=== PATIENT | female | born 1950 | race African-American/Black ===

== ENCOUNTER → 2017-02-01 | Outpatient (CLI) | payer BC ==
[~2017-02-01] MED LIST: AMLO-114 PO; AMPH10TA2 PO; CYAN10005 PO; GLUCTAB7 PO; LISI-729 PO; MULT-506 PO; OMEG10007 PO
== END | disposition home or self-care (01) ==
LOC: C.MAMM 13:26
PROVIDERS: ATTEND Nurse Practitioner Adult Health
DX: M85.859 Other specified disorders of bone density and structure, unspecified thigh (principal)

== ENCOUNTER → 2017-02-08 | Outpatient (CLI) | payer BC ==
--- NOTE | 2017-02-09 07:58 | MAMMOGRAPHY REPORT ---
BILATERAL DIGITAL SCREENING MAMMOGRAM WITH CAD: 02/08/2017 CLINICAL HISTORY: Routine screening. TECHNIQUE: Bilateral CC and MLO views were obtained. Current study was also evaluated with a Compute r Aided Detection (CAD) system. COMPARISON: Comparison is made to exams dated: 09/16/2015 mammogram, 09/10/2014 mammogram, 08/19/2011 m ammogram, 08/18/2010 mammogram, 07/22/2009 mammogram - [facility], and 07/15/2008. BREAST COMPOSITION: There are scattered areas of fibroglandular density in both breasts. FINDINGS: The parenchymal pattern is unchanged. No developing mass, architectural distortion or clus ter of suspicious microcalcifications is seen in either breast. IMPRESSION: ACR BI-RADS CATEGORY 2: BENIGN There is no mammographic evidence of malignancy. A 1 year screening mammogram is recommended. The pa tient will receive written notification of the results. Approximately 10% of breast cancers are not detected with mammography. A negative mammographic report should not delay biopsy if a clinically suggestive mass is present. Bonnie Begum M.D. ay/:02/08/2017 14:31:43 Ham Pumper: Alejandro Morales RT(R)(M), [facility] letter sent: Normal 1/2 BI-RADS Code: ACR BI-RADS Category 2: Benign
== END | disposition home or self-care (01) ==
LOC: C.MAMM 13:49
PROVIDERS: ATTEND Obstetrics & Gynecology
DX: Z12.31 Encounter for screening mammogram for malignant neoplasm of breast (principal)

== ENCOUNTER → 2017-07-14 | Outpatient (CLI) | payer OTHER ==
[2017-07-14 13:28] LABS: HEMOGLOBIN A1C 5.9 % (4.5-5.6)
[2017-07-14 14:20] LABS: ALBUMIN 3.6 gm/dl (3.4-5.0); ALT/SGPT 26 U/L (12-78); BLOOD UREA NITROGEN 17 mg/dl (7-18); CALCIUM 9.1 mg/dl (8.5-10.1); CARBON DIOXIDE 26 mmol/L (21-32); CREATININE 0.99 mg/dl (0.60-1.20); GLUCOSE 85 mg/dl (70-99); POTASSIUM 3.7 mmol/L (3.5-5.1); SODIUM 137 mmol/L (136-145)
[2017-07-14 14:32] LABS: ALKALINE PHOSPHATASE 83 U/L (45-117); AST/SGOT 19 U/L (15-37); CHOLESTEROL 191 mg/dl (0-200); LDL CHOLESTEROL CALCULATED 126 mg/dl; TOTAL PROTEIN 8.6 gm/dl (6.4-8.2)
== END | disposition home or self-care (01) ==
LOC: C.LAB 12:07
PROVIDERS: ATTEND Family Medicine
DX: I10 Essential (primary) hypertension (principal); E55.9 Vitamin D deficiency, unspecified; E78.00 Pure hypercholesterolemia, unspecified; R73.03 Prediabetes

== ENCOUNTER → 2017-11-10 | Day surgery (SDC) | payer BC, OTHER ==
[2017-01-25 12:02] VITALS: BMI 38.0
[2017-11-01 14:32] VITALS: Ht 157.5 cm; Wt 97.3 kg
[~2017-11-10] VITALS: Ht 157.5 cm; Wt 97.3 kg
[~2017-11-10] MED LIST changes: +ARGI1CAP2 PO; +B-COTAB18 PO; +CALC500C70 PO; +CHOL2000 PO; +EFLO13.925 TOP; +FLUT50SP45 NAE; +LIDOCAINE HCL 2% 2 ML VIAL (20MG/ML) ONE; -LISI-729 PO; +LSN20 PO; +LYCO10CA PO; +MAGN1CAP2 PO; -MULT-506 PO; +MULT1CAP3 PO; +PROPOFOL IV EMULSION 10 MG/ML 20 ML VIAL ONE; +VITA1TAB4 PO
--- NOTE | 2017-11-10 12:42 | Endo History and Physical ---
History & Physical Date of Service: November 10, 2017. Chief Complaint: SCREENING Referring Physician: DR WALTERS History of Present Illness 67 yo female presents for screening colonoscopy. Past Surgical History Hx Cardiac Surgery: No Hx Internal Defibrillator: No Hx Pacemaker: No Hx Abdominal Surgery: Yes (CAROL, HYSTER) Hx of Implantable Prosthesis: No Hx Post-Op Nausea and Vomiting: No Hx Cancer Surgery: No Hx Thoracic Surgery: No Hx Orthopedic: Yes (RT RENAY) Hx Urinary Tract Surgery: No Family History Polyp Social History Smoking Status: Former Smoker Hx Substance Use: No (HX MARIJUANA USE IN 70S) Hx Alcohol Use: Yes (A COUPLE DRINKS/MONTH) Allergies Coded Allergies: Latex (Unverified Allergy, Severe, FACIAL SWELLING, SEVERE ITCHING, LIPS SWOLLEN,FEVER, 11/10/17) Nickel (Verified Allergy, Unknown, RASH, 11/10/17) Beta Adrenergic Blockers (Verified Adverse Reaction, Severe, SUDDEN DEPRESSION, 11/10/17) Current Medications Reported Home Medications Medications Dose Route/Sig Max Daily Dose Days Date Category Os-Devan 500 Plus D (Calcium/Vitamin D) Tab 1 Tab PO DAILY 11/01/17 Reported Allergy Nasal [place] 24 Ho (Fluticasone Propionate (Nasal)) 50 Mcg/Act Spr 1-2 Sprays JEFFREY HS PRN 11/01/17 Reported Vitamin D3 (Cholecalciferol) 2,000 Unit Cap 1 Cap PO DAILY 30 11/01/17 Reported Vitamin B Complex (B-Complex Vitamins) 1 Tab Tab 1 Tab PO DAILY 11/01/17 Reported Vaniqa (Eflornithine Hcl) 13.9 % Cre 1 Appln TOP BID 30 11/01/17 Reported Magnesium (Magnesium Oxide (Mg Supplement) 400 Mg Cap 1 Cap PO DAILY 11/01/17 Reported Lycopene 10 Mg Cap 1 Cap PO DAILY 11/01/17 Reported L-Arginine (Arginine) 500 Mg Cap 1 Cap PO DAILY 11/01/17 Reported Vitamin E 400 Unit Tab 1 Tab PO DAILY 11/01/17 Reported Womens Multi (Multiple Vitamins W/ Minerals) 1 Cap Cap 1 Cap PO DAILY 11/01/17 Reported Lisinopril 20 Mg Tab 1 Tab PO DAILY 11/01/17 Reported Glucosamine Chondroitin (Ktvztfhvcrn-Mtbvklabaac-Uuy C-) 1 Tab Tab 1 Tab PO QAM 01/25/17 Reported Vitamin B-12 (Cyanocobalamin) 1,000 Mcg Tab 1,000 Mcg PO QAM 01/25/17 Reported Norvasc (Amlodipine Besylate) 10 Mg Tab 10 Mg PO QPM 01/25/17 Reported [place]-3 (Fish Oil) 1 Ea Cap 1 Cap PO QAM 10/18/13 Reported Adderall 10MG (Amphetamine-Dextroamphetamine 10MG) 1 Tab Tab 5 Mg PO QAM 10/18/13 Reported Vital Signs Weight (Kilograms): 97.27 Height (Feet): 5 Height (Inches): 2 Date Time Temp Pulse Resp B/P (MAP) Pulse Ox O2 Delivery O2 Flow Rate FiO2 11/10/17 12:30 36.9 86 18 127/83 (98) 94 Room Air Physical Exam General Appearance: WD/WN, no apparent distress Respiratory/Chest: Auscultation: breath sounds normal Cardiovascular: Heart Auscultation: RRR Abdomen: Bowel Sounds: normal Inspection & Palpation: soft, non-distended, no tenderness, guarding & rebound Assessment and Plan Assessment: 67 yo female presents for screening colonoscopy. Plan: Proceed with colonoscopy.
--- NOTE | 2017-11-10 13:16 | Discharge Instructions ---
Endoscopy Patient Instructions Date / Procedure(s) Performed November 10, 2017. Colonoscopy Allergy Information Coded Allergies: Latex (Unverified Allergy, Severe, FACIAL SWELLING, SEVERE ITCHING, LIPS SWOLLEN,FEVER, 11/10/17) Nickel (Verified Allergy, Unknown, RASH, 11/10/17) Beta Adrenergic Blockers (Verified Adverse Reaction, Severe, SUDDEN DEPRESSION, 11/10/17) Discharge Date / Findings November 10, 2017. Colon polyp Internal hemorrhoids Medication Instructions OK to resume all medications today as prescribed Reported Home Medications Medications Dose Route/Sig Max Daily Dose Days Date Category Os-Devan 500 Plus D (Calcium/Vitamin D) Tab 1 Tab PO DAILY 11/01/17 Reported Allergy Nasal [place] 24 Ho (Fluticasone Propionate (Nasal)) 50 Mcg/Act Spr 1-2 Sprays JEFFERY HS PRN 11/01/17 Reported Vitamin D3 (Cholecalciferol) 2,000 Unit Cap 1 Cap PO DAILY 30 11/01/17 Reported Vitamin B Complex (B-Complex Vitamins) 1 Tab Tab 1 Tab PO DAILY 11/01/17 Reported Vaniqa (Eflornithine Hcl) 13.9 % Cre 1 Appln TOP BID 30 11/01/17 Reported Magnesium (Magnesium Oxide (Mg Supplement) 400 Mg Cap 1 Cap PO DAILY 11/01/17 Reported Lycopene 10 Mg Cap 1 Cap PO DAILY 11/01/17 Reported L-Arginine (Arginine) 500 Mg Cap 1 Cap PO DAILY 11/01/17 Reported Vitamin E 400 Unit Tab 1 Tab PO DAILY 11/01/17 Reported Womens Multi (Multiple Vitamins W/ Minerals) 1 Cap Cap 1 Cap PO DAILY 11/01/17 Reported Lisinopril 20 Mg Tab 1 Tab PO DAILY 11/01/17 Reported Glucosamine Chondroitin (Gbamoqsrqxy-Nacaqxthjbr-Szy C-) 1 Tab Tab 1 Tab PO QAM 01/25/17 Reported Vitamin B-12 (Cyanocobalamin) 1,000 Mcg Tab 1,000 Mcg PO QAM 01/25/17 Reported Norvasc (Amlodipine Besylate) 10 Mg Tab 10 Mg PO QPM 01/25/17 Reported [place]-3 (Fish Oil) 1 Ea Cap 1 Cap PO QAM 10/18/13 Reported Adderall 10MG (Amphetamine-Dextroamphetamine 10MG) 1 Tab Tab 5 Mg PO QAM 10/18/13 Reported Provider Instructions Activity Restrictions - No exercising or heavy lifting for 24 hours. - Do not drink alcohol the day of the procedure. - Do not drive a car or operate machinery until the day after the procedure. - Do not make any important decisions or sign important papers in 24 hours after the procedure. Following Day: - Return to full activity which may include returning to work/school. Diet Start your diet with liquids and light foods (jello, soup, juice, toast). Then eat your usual diet if not nauseated. Treatment For Common After Affects For mild abdominal pain, bloating, or excessive gas: - Rest - Eat lightly - Lie on right side Follow-Up Information Follow-up with DR WALTERS as scheduled Anesthesia Information What You Should Know You have had a procedure that required some medicine to reduce anxiety and discomfort. This treatment is called moderate sedation. After receiving the treatment, you may be sleepy, but you will be able to breathe on your own. The effects of the treatment may last for several hours. Follow these instructions along with Activity/Diet recommendations noted above: * Do NOT do anything where dizziness or clumsiness would be dangerous. * Rest quietly at home today, then you can be up and about tomorrow. * Have a responsible person stay with you the rest of today. * You may have had an I.V. today. If so, you may take the dressing off later today. Recommendations Call your doctor if: * Trouble breathing * Continuous vomiting for more than 24 hours * Temperature above 101 degrees * Severe abdominal pain or bloating * Pain not relieved by pain medicine ordered * There is increased drainage or redness from any incision * A large amount of rectal bleeding greater than 2-3 tablespoons. (If you had a polyp/s removed or have hemorrhoids, a small amount of blood - from the rectum is to be expected.) * You have any unanswered questions or concerns. IN THE EVENT OF A SERIOUS EMERGENCY, GO TO THE NEAREST EMERGENCY ROOM Your discharge instructions were prepared by provider Oral Rose. Patient Instructions Signature Page Eli Rogel Patient (or Guardian) Signature/Date: I have read and understand the instructions given to me by my caregivers. Caregiver/RN/Doctor Signature/Date: The above-named patient and/or guardian has received patient instructions on this date. + Original Patient Signature Page (only) stays with chart. Please make copy for patient.
--- NOTE | 2017-11-10 13:27 | GI REPORT ---
Patient Name: Eli Blanton Procedure Date: 11/10/2017 12:51 PM Date of : 1950 Admit Type: Outpatient Age: 67 Gender: Female Attending MD: Oral Rose DO Procedure: Colonoscopy Providers: Oral Rose DO Referring MD: Antoinette Gustafson Indications: Screening for colorectal malignant neoplasm Medicines: Monitored Anesthesia Care Complications: No immediate complications. Estimated Blood Loss: Estimated blood loss: none. Procedure: Pre-Anesthesia Assessment: - Prior to the procedure, a History and Physical was performed, and patient medications and allergies were reviewed. The patient's tolerance of previous anesthesia was also reviewed. The risks and benefits of the procedure and the sedation options and risks were discussed with the patient. All questions were answered, and informed consent was obtained. Prior Anticoagulants: The patient has taken no previous anticoagulant or antiplatelet agents. ASA Grade Assessment: III - A patient with severe systemic disease. After reviewing the risks and benefits, the patient was deemed in satisfactory condition to undergo the procedure. After I obtained informed consent, the scope was passed under direct vision. Throughout the procedure, the patient's blood pressure, pulse, and oxygen saturations were monitored continuously. The scope was introduced through the anus and advanced to the terminal ileum. The colonoscopy was performed without difficulty. The patient tolerated the procedure well. The quality of the bowel preparation was good. The terminal ileum, ileocecal valve, appendiceal orifice, and rectum were photographed. Findings: The perianal and digital rectal examinations were normal. A 4 mm polyp was found in the ascending colon. The polyp was sessile. The polyp was removed with a cold snare. Resection and retrieval were complete. Non-bleeding internal hemorrhoids were found during retroflexion. The hemorrhoids were small. Impression: - One 4 mm polyp in the ascending colon, removed with a cold snare. Resected and retrieved. - Non-bleeding internal hemorrhoids. Recommendation: - Resume previous diet. - Continue present medications. - Repeat colonoscopy for surveillance based on pathology results. - Return to primary care physician as previously scheduled. Oral Rose DO 11/10/2017 1:26:26 PM This report has been signed electronically. Note Initiated On: 11/10/2017 12:51 PM Number of Addenda: 0 I attest to the content of the Intraoperative Record and orders documented therein, exceptions below {[id number]}
--- NOTE | 2017-11-10 13:37 | Anesthesiology Progress Note ---
Anesthesia Post Op Note Date & Time November 10, 2017 at 13:37 Vital Signs Pain Intensity: 0 Vital Signs Past 12 Hours Date Time Temp Pulse Resp B/P (MAP) Pulse Ox O2 Delivery O2 Flow Rate FiO2 11/10/17 13:24 84 18 124/67 (86) 96 Room Air 11/10/17 13:09 82 18 118/74 (89) 95 Room Air 11/10/17 12:30 36.9 86 18 127/83 (98) 94 Room Air Notes Mental Status: alert / awake / arousable, participated in evaluation Pt Amnestic to Procedure: Yes Nausea / Vomiting: adequately controlled Pain: adequately controlled Airway Patency, RR, SpO2: stable & adequate BP & HR: stable & adequate Hydration State: stable & adequate Anesthetic Complications: no major complications apparent
[2017-11-10 13:39] VITALS: BP 142/86; PULSE 70; O2SAT 97
== END | disposition home or self-care (01) ==
LOC: C.GI 11:59
PROVIDERS: ATTEND Internal Medicine
DX: Z12.11 Encounter for screening for malignant neoplasm of colon (principal); D12.2 Benign neoplasm of ascending colon; K64.8 Other hemorrhoids; E66.9 Obesity, unspecified; Z68.39 Body mass index [BMI] 39.0-39.9, adult; Z96.641 Presence of right artificial hip joint; Z90.49 Acquired absence of other specified parts of digestive tract; Z90.710 Acquired absence of both cervix and uterus; Z87.891 Personal history of nicotine dependence; Z91.040 Latex allergy status; Z79.899 Other long term (current) drug therapy

== ENCOUNTER 2024-10-18 14:34 | Inpatient (IN) ==
--- NOTE | 2024-10-18 14:54 | Emergency Department Note ---
Impression & Plan Stroke-like symptoms, Brain TIA ED Provider Note HISTORY OF PRESENT ILLNESS: Patient is a 74-year-old female presenting with some expressive aphasia. Patient reports that 6 days ago she had fallen and hit the back of her head in the bathroom on a tub. Denies loss of consciousness. She not on any anticoagulation or antiplatelet therapy. She states that throughout the last 6 days, she has been having intermittent episodes of getting her words out. She denies any anticoagulation or antiplatelet use. 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 She states that symptoms resolved and she was feeling well, until 1330 this afternoon when she started having difficulty speaking to her realtor. She reports that in January 2024, she had a intracranial hemorrhage. She denies any chest pain or shortness of breath. She denies any slurred speech, numbness or tingling or weakness in her extremities. ROS: as above PHYSICAL EXAM: Constitutional: Patient appears in no acute distress. HENT: Head: Normocephalic and atraumatic. Eyes: EOMI, PERRL Mouth/Throat: Mucous membranes moist. Neck: Trachea midline. Neck supple. Cardiovascular: RRR, No murmurs, rubs or gallops. Intact distal pulses. Pulmonary/Chest: No respiratory distress. Breath sounds clear and equal bilaterally. No wheezes or rales. Abdominal: Abdomen soft, no tenderness, rebound or guarding. Musculoskeletal: No edema, tenderness or deformity noted. Skin: Warm and dry. No rash, erythema, pallor or cyanosis Psychiatric: Appropriate mood and affect for situation. Neurological: Alert and keenly responsive. Facies symmetric. Able to raise eyebrows, close eyes, smile, puff mouth, stick out tongue, move tongue left and right and raise palate symmetrically. Able to shrug shoulders. PERRLA. SILT to forehead below eye and at jawline. Can hear soft noise bilaterally. Good finger to nose. Strength 5/5 in bilateral upper and lower extremities. SILT throughout bilateral upper and lower extremities. MDM: - Vitals signs showed hypertension and tachycardia. - History obtained via patient. History as above. - Chronic conditions affecting care: HTN; prediabetes; GERD; HLD - Patient was alerted as a STROKE ALERT by the triage nurse. On my assessment, the patient reports her last known well for this episode was at 1330. However, she has been having intermittent symptoms for the last 6 days. She also has had a recent intracranial hemorrhage. As such, she is not a candidate for TNK at this time. No evidence on physical examination of large vessel occlusion. - Differential diagnoses include, but are not limited to: TIA; CVA; intracranial hemorrhage; ACS; pneumonia - Order placed for continuous cardiac monitoring. At this time, monitor showed rate of 89 bpm with normal sinus rhythm, per my interpretation. - External medical records reviewed. Primary care visit note dated 04/04/2024 was reviewed. Patient follows in their clinic for her depression, GERD and hypertension hyperlipidemia. She was seen for a wellness exam. - EKG image interpreted by myself showed normal sinus rhythm. Rate 81 bpm. QT 374. No acute ischemic changes. - Laboratory workup interpreted by myself showed leukopenia (WBC 3.73); normal PT/INR; stable electrolytes - CXR image reviewed by myself negative for pneumonia, per my interpretation - CT head wo contrast negative for acute pathology. - CTA head negative for acute pathology. - CTA neck negative for significant arterial narrowing or occlusion. - Discussed case with neurologist on-call at [facility], Dr. Ledesma, at 17:04. Explained the patient's symptoms and her imaging findings. He stated that there was no evidence of acute hemorrhage on her CT scan, would recommend just giving the patient aspirin at this time and no Plavix. - 324 mg PO aspirin ordered. - Given patient's recurrent symptoms, concern for possible TIA. However, given her persistent symptoms for hours today, also concern for potentially a small stroke, given her only symptom is intermittent episodes of word finding difficulties. Will admit to hospital service for further workup. - Discussion was had with skilled nursing case manager about patient's case and need for admission - Hospitalist, Dr. Yanez, consulted for admission - Patient admitted to [facility] for further evaluation and management. ASSESSMENT AND PLAN: Diagnosis: Strokelike symptoms; brain TIA Plan: Admit Past Med/Surg History Problem List (Updated 10/18/24 @ 17:08 by Cece Christopher MD) Brain TIA (Acute) Stroke-like symptoms (Acute) History of colon polyps Depression GERD (gastroesophageal reflux disease) Hypercholesterolemia (Acute) pt denies HTN (hypertension) (Acute) Osteopenia (Acute) Prediabetes (Acute) no medications Medical History (Updated 10/18/24 @ 17:08 by Cece Christopher MD) Torn meniscus R knee 08/2023 Sleep apnea no cpap for the last several months Anemia pt denies Attention deficit disorder without hyperactivity pt denies Obesity Osteoarthritis of hip Postmenopausal atrophic vaginitis Transient ischemic attack pt denies Tubular adenoma of colon Surgical History History of adenoidectomy History of tonsillectomy Status post uvulopalatopharyngoplasty History of esophagogastroduodenoscopy (EGD) History of colonoscopy History of appendectomy Status post total hip replacement, right S/P total abdominal hysterectomy S/P hemorrhoidectomy S/P cholecystectomy S/P cataract surgery S/P knee surgery Family History Father Lung cancer Brother Prostate cancer Mother Cerebral hemorrhage Sister Stroke Other No family history of adverse response to anesthesia Denies family history of Ovarian cancer Osteoporosis Myocardial infarction Breast cancer Colonic polyp Social History (Updated 04/04/24 @ 14:31 by Stefania Palma LPN) Smoking Status: Unknown if ever smoked Tobacco Type: Cigarettes Age Started Using Tobacco: 18; Age Quit Using Tobacco: 26; packs per day: 0.2; Second Hand Exposure: No (hx); Do You Dip or Chew Tobacco: No; Hx Alcohol Use: Yes Alcohol type: wine and hard liquor Alcohol Intake Frequency: Monthly or Less Hx Substance Use: No Preferred Language: [place] Communication Ability: Effective Visual Impairment: Limited Hearing Ability: Normal Bleach Liquor Maker Required: No Beliefs That Will Affect Care: Spiritual marital status: Current Living Situation: Spouse current occupational status: retired 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 [employer] How many Children do You have: 2 Feels Safe at Home: Yes Childhood Exposure to Second-Hand Smoke: Yes Diet: regular caffeine: Yes during the past year weight has: remained stable Dental Care, Regularly: No Physical Activity Frequency: 1-2 Times per Week Seatbelt Use: always Sunscreen Use: Yes Assistive Devices: CPAP and Glasses Allergies Allergies Allergy/AdvReac Type Severity Reaction Status Date / Time latex Allergy Severe FACIAL Verified 10/18/24 15:23 SWELLING, SEVERE ITCHING, LIPS SWOLLEN,FEVER nickel Allergy Mild RASH Verified 10/18/24 15:23 Beta-Blockers AdvReac Severe SUDDEN Verified 10/18/24 15:23 (Beta-Adrenergic Bloc DEPRESSION meloxicam AdvReac Intermediate Hypertensio Verified 10/18/24 15:23 n Home Meds Home Medications Medication Instructions Recorded Confirmed eflornithine 13.9 % topical cream 1 applic topical BID PRN Skin 10/26/22 10/18/24 (Vaniqa) Irritation Cayenne Suppliment 1 dose PO DAILY 10/18/24 10/18/24 faviolaa root extract 300 mg 300 mg PO DAILY 10/18/24 10/18/24 capsule calcium carbonate (Calcium 600) 600 mg PO DAILY 10/18/24 10/18/24 cholecalciferol (vitamin D3) 25 25 mcg PO DAILY 10/18/24 10/18/24 mcg (1,000 unit) capsule (Vitamin D3) cyanocobalamin (vitamin B-12) 1,000 mcg PO DAILY 10/18/24 10/18/24 1,000 mcg tablet (Vitamin B-12) diclofenac sodium 1 % topical gel 4 g topical QID PRN JOINT PAIN 10/18/24 10/18/24 (Voltaren Arthritis Pain) lorazepam 1 mg tablet 1 mg PO DIRECTED PRN anxiety 10/18/24 10/18/24 omega-3 fatty acids 1,000 mg 1,000 mg PO DAILY 10/18/24 10/18/24 capsule triamcinolone acetonide 0.025 % 1 applic topical BID PRN SKIN 10/18/24 10/18/24 topical ointment IRRITATIONS vitamin E 1 applic topical DAILY 10/18/24 10/18/24 Previous Rx's Medication Instructions Recorded amlodipine 10 mg tablet 10 mg PO QPM #90 tabs 07/18/23 folic acid 1 mg tablet 1 mg PO DAILY #90 tabs 07/18/23 lisinopril 20 mg tablet 20 mg PO QPM #90 tabs 07/18/23 loperamide 2 mg capsule (Imodium 2 mg PO Q6H PRN loose stool #30 07/18/23 A-D) caps omeprazole 40 mg capsule,delayed 40 mg PO QPM #90 caps 07/18/23 release Results & Data (ED) Vital Signs Vital Signs - 24 hr 10/18/24 14:39 10/18/24 14:49 10/18/24 14:49 Temperature 36.7 C Temperature Source Temporal Artery Scan Pulse Rate 92 H Pulse Rate [Apical] Respiratory Rate 19 Respiratory Effort / Characteristics Non-Labored Spontaneous Respiratory Depth Normal Blood Pressure 150/102 H Blood Pressure [Left Arm] Blood Pressure Mean 118 Blood Pressure Mean [Left Arm] Pulse Oximetry 98 99 99 Oxygen Delivery Method Room Air Room Air Room Air Sepsis Recent Fever Within 48 Hours No Sepsis New/Unexplained Change in Mental Status No Sepsis Action Taken by Nursing No Action Required 10/18/24 14:51 10/18/24 15:41 Temperature Temperature Source Pulse Rate 86 Pulse Rate [Apical] 89 Respiratory Rate 18 Respiratory Effort / Characteristics Non-Labored Respiratory Depth Normal Blood Pressure Blood Pressure [Left Arm] 184/103 H Blood Pressure Mean Blood Pressure Mean [Left Arm] 130 Pulse Oximetry 96 Oxygen Delivery Method Room Air Sepsis Recent Fever Within 48 Hours Sepsis New/Unexplained Change in Mental Status Sepsis Action Taken by Nursing Laboratory Data 10/18/24 14:47 10/18/24 14:47 Lab Results 10/18/24 10/18/24 10/18/24 Range/Units 14:47 14:55 15:54 WBC 3.73 L (4.8-10.8) K/ul RBC 4.35 (4.20-5.40) M/uL Hgb 12.4 (12.0-16.0) g/dl POC Hgb 12.6 (12.0-16.0) g/dl Hct 37.1 (37.0-47.0) % POC Hct 37 (37-47) % MCV 85.3 (80.0-100.0) fL MCH 28.5 (25.0-34.0) pg MCHC 33.4 (32.0-36.0) g/dL RDW Std Deviation 43.5 (36.4-46.3) fL RDW Coeff of Robby 13.8 (11.5-14.5) % Plt Count 242 (130-400) K/uL MPV 9.2 L (9.4-12.4) fL PT Cancelled 11.0 INR Cancelled 1.0 APTT Cancelled 30 PTT Ratio Cancelled 1.1 POC Sodium 142 (135-144) mmol/L Sodium 138 (136-145) mmol/L POC Potassium 4.2 (3.3-5.0) mmol/L Potassium 4.2 (3.5-5.1) mmol/L POC Chloride 106 (101-112) mmol/L Chloride 108 H (98-107) mmol/L Carbon Dioxide 25 (21-32) mmol/L POC Total CO2 21 L (24-31) mmol/L Anion Gap 5 (3-11) POC Anion Gap 20.0 (16-25) mmol/L POC BUN 27 H (7-18) mg/dl BUN 26 H (6-23) mg/dl Creatinine 1.20 (0.6-1.2) mg/dl POC Creatinine 1.4 H (0.6-1.3) mg/dl Est Cr Clr Drug Dosing Not Reportable eGFR 47.21 BUN/Creatinine Ratio 21.7 H (10-20) Glucose 101 H (70-99(Fasting)) mg/dl POC Glucose (other) 101 H (70-99) mg/dl Calcium 9.6 (8.6-10.3) mg/dl POC Ioniz Calcium Babatunde 1.29 (1.12-1.32) mmol/l Magnesium 2.0 (1.7-2.4) mg/dl Total Bilirubin 0.3 (0.2-1.0) mg/dl AST 18 (13-39) U/L ALT 9 (7-52) U/L Alkaline Phosphatase 73 (34-104) U/L Total Protein 7.8 (6.0-8.3) gm/dl Albumin 4.0 (3.4-5.0) gm/dl Globulin 3.8 (2.5-4.0) gm/dl Albumin/Globulin Ratio 1.1 (0.9-2) Administered Medications Discontinued Medications Ioversol (Optiray 320 125ml) 115 ml IV ONCE ONE Stop: 10/18/24 14:58 Last Admin: 10/18/24 15:00 Dose: 115 ml Documented By: GUILHERME Imaging Data Radiologist's Impression: Chest X-Ray 10/18/24 14:49 XR chest 1V portable CLINICAL HISTORY: stroke alert COMPARISON STUDY: 02/15/2023 FINDINGS: There is moderate cardiomegaly without pulmonary vascular congestion. No effusion, consolidation, or pneumothorax. IMPRESSION: No acute findings. ACT 112: Negative or not required by law. Electronically signed by: Hiro Helm M.D. 10/18/2024 3:[address] 10/18/24 14:49 CT SCAN OF THE BRAIN WITHOUT IV CONTRAST CLINICAL HISTORY: Recent fall. Speech difficulties. Possible stroke. COMPARISON STUDY: Head CT February 15, 2023. MRI of the brain May 03, 2023. TECHNIQUE: Unenhanced axial CT scan of the brain was performed from the vertex to the skull base. A dose lowering technique was utilized adhering to the principles of ALARA. FINDINGS: Brain parenchyma: No acute intracranial hemorrhage, midline shift or mass effect is present. Thickening of the falx and tentorium is unchanged from earlier exams. This is chronic. Law[place]-white matter differentiation is preserved. There are no extra-axial fluid collections. There are no findings to suggest acute dural sinus thrombosis or acute territorial infarct. Ventricles, sulci, cisterns: There is no hydrocephalus. The basal cisterns are patent. Calvarium: Unremarkable. Sinuses and mastoids: The visualized paranasal sinuses are clear. The mastoid air cells are well pneumatized. Orbits: The bony orbits are grossly intact. IMPRESSION: 1. No acute intracranial findings. 2. Nonspecific chronic thickening of the falx and tentorium, unchanged from prior exams dating back to January 13, 2023. ACT 112: Negative or not required by law. Electronically signed by: Jeremiah Daugherty M.D. 10/18/2024 3:20 PM Head CTA 10/18/24 14:49 CT angio head w con CLINICAL HISTORY: 74 years-old Female with stroke alert. Acute strokelike symptoms COMPARISON STUDY: Head CT 10/18/2024, brain MRI 05/03/2023, head CT 02/15/2023 TECHNIQUE: Unenhanced following the IV administration of 1:15 cc of Optiray, CT angiogram of the brain was performed from the skull base to the vertex. Images are reviewed in the axial, sagittal, and coronal planes. 3-D MIPS images are created and assessed. IV contrast was administered without complication. All measurements were obtained according to NASCET criteria. A dose lowering technique was utilized adhering to the principles of ALARA. CT DOSE: 1514.27 mGy.cm FINDINGS: CT BRAIN: Dictated separately. Chronic pachymeningeal thickening of the falx cerebri is unchanged. Mild mucosal thickening of the paranasal sinuses with subsequent middle left ethmoid air cell osteoma. Mastoid air cells are clear. CT ANGIOGRAM OF THE BRAIN: The imaged bilateral internal carotid arteries are patent. The bilateral anterior and middle cerebral arteries are also patent. The vertebrobasilar system and posterior cerebral arteries are widely patent. There is no aneurysm, high-grade stenosis, or proximal branch occlusion identified. Dural sinuses appear patent. IMPRESSION: 1. Unremarkable CTA of the head. 2. Chronic pachymeningeal thickening of the falx cerebri is unchanged dating back to the initial studies from 2022. ACT 112: Negative or not required by law. The above report was generated using voice recognition software. It may contain grammatical, syntax or spelling errors. Electronically signed by: Rafa Haile M.D. 10/18/2024 3:23 PM Neck CTA 10/18/24 14:49 CT angio neck with con CLINICAL HISTORY: stroke alert. COMPARISON STUDY: 01/13/2023 TECHNIQUE: Following the IV administration of 150 of Optiray, CT angiogram of the neck was performed from the aortic arch to the skull base. Images are reviewed in the axial, sagittal, and coronal planes. 3-D MIPS images are created and assessed. IV contrast was administered without complication. All measurements were calculated based on NASCET criteria. A dose lowering technique was utilized adhering to the principles of ALARA. FINDINGS: There is mild motion artifact. There are mild atherosclerotic calcifications. The vertebral arteries are diminutive beyond PICA, stable anatomic variant. No significant narrowing or occlusion seen at the vertebral arteries or the common or internal carotid arteries bilaterally. Stable thyroid nodules. There are diffuse cervical spine degenerative changes. No fracture or subluxation seen. IMPRESSION: No significant arterial narrowing or occlusion seen at the neck. ACT 112: Negative or not required by law. The above report was generated using voice recognition software. It may contain grammatical, syntax or spelling errors. Electronically signed by: Hiro Helm M.D. 10/18/2024 3:20 PM Discharge Plan Visit Data Chief Complaint: Stroke Alert Stated Complaint: FALL ON BACK OF HEAD ON SAT 10/13/24 ED Provider: Cece Christopher Discharge Problem: Stroke-like symptoms, Brain TIA Forms Stand Alone Forms: [employer] Prescriptions Prescriptions: No Action Vaniqa 13.9 % cream 1 applic TOP BID PRN (Reason: Skin Irritation) folic acid 1 mg tablet 1 mg PO DAILY Qty: 90 1RF loperamide [Imodium A-D] 2 mg capsule 2 mg PO Q6H PRN (Reason: loose stool) Qty: 30 2RF amlodipine 10 mg tablet 10 mg PO QPM Qty: 90 1RF lisinopril 20 mg tablet 20 mg PO QPM Qty: 90 1RF omeprazole 40 mg capsule,delayed release(DR/EC) 40 mg PO QPM Qty: 90 1RF omega-3 fatty acids 1,000 mg Capsule 1,000 mg PO DAILY cyanocobalamin (vitamin B-12) [Vitamin B-12] 1,000 mcg Tablet 1,000 mcg PO DAILY calcium carbonate [Calcium 600] 600 mg calcium (1,500 mg) Tablet 600 mg PO DAILY vitamin E [Vitamin E Oil] Oil 1 applic TOPICAL DAILY cholecalciferol (vitamin D3) [Vitamin D3] 25 mcg (1,000 unit) Capsule 25 mcg PO DAILY ashwagandha root extract 300 mg Capsule 300 mg PO DAILY Cayenne Suppliment 1 dose PO DAILY triamcinolone acetonide 0.025 % ointment 1 applic topical BID PRN (Reason: SKIN IRRITATIONS) Patient Comments: prefers this to go to [facility] lorazepam 1 mg tablet 1 mg PO DIRECTED PRN (Reason: anxiety) Rx Instructions: Take 30-60 min prior to MRI diclofenac sodium [Voltaren Arthritis Pain] 1 % gel 4 g topical QID PRN (Reason: JOINT PAIN) Referrals Referrals: Sadie Brito MD [Primary Care Provider] -
[2024-10-18] MEDS: OPTIRAY 320 125ml IV ONE (15:00)
[2024-10-18 15:04] LABS: Hematocrit (blood only) 37.1 % (37.0-47.0); Hemoglobin 12.4 g/dl (12.0-16.0); Mean Corpuscular Hemoglobin 28.5 pg (25.0-34.0); Mean Corpuscular Hgb Conc 33.4 g/dL (32.0-36.0); Mean Corpuscular Volume 85.3 fL (80.0-100.0); Mean Platelet Volume 9.2 fL (9.4-12.4); Platelet Count 242 K/uL (130-400); RDW Coefficient of Variation 13.8 % (11.5-14.5); RDW Standard Deviation 43.5 fL (36.4-46.3); Red Blood Count 4.35 M/uL (4.20-5.40); White Blood Count 3.73 K/ul (4.8-10.8)
[2024-10-18 15:17] LABS: iSTAT Creatinine 1.4 mg/dl (0.6-1.3); iSTAT Hemoglobin 12.6 g/dl (12.0-16.0); iSTAT Ionized Calcium 1.29 mmol/l (1.12-1.32); iSTAT Potassium 4.2 mmol/L (3.3-5.0)
--- NOTE | 2024-10-18 15:22 | CT Scan Report ---
CT SCAN OF THE BRAIN WITHOUT IV CONTRAST CLINICAL HISTORY: Recent fall. Speech difficulties. Possible stroke. COMPARISON STUDY: Head CT February 15, 2023. MRI of the brain May 03, 2023. TECHNIQUE: Unenhanced axial CT scan of the brain was performed from the vertex to the skull base. A dose lowering technique was utilized adhering to the principles of ALARA. FINDINGS: Brain parenchyma: No acute intracranial hemorrhage, midline shift or mass effect is present. Thickeni ng of the falx and tentorium is unchanged from earlier exams. This is chronic. Law[place]-white matter diff erentiation is preserved. There are no extra-axial fluid collections. There are no findings to sugges t acute dural sinus thrombosis or acute territorial infarct. Ventricles, sulci, cisterns: There is no hydrocephalus. The basal cisterns are patent. Calvarium: Unremarkable. Sinuses and mastoids: The visualized paranasal sinuses are clear. The mastoid air cells are well pneu matized. Orbits: The bony orbits are grossly intact. IMPRESSION: 1. No acute intracranial findings. 2. Nonspecific chronic thickening of the falx and tentorium, unchanged from prior exams dating back t o January 13, 2023. ACT 112: Negative or not required by law. Electronically signed by: Jeremiah Daugherty M.D. 10/18/2024 3:20 PM
--- NOTE | 2024-10-18 15:22 | XRay Report ---
XR chest 1V portable CLINICAL HISTORY: stroke alert COMPARISON STUDY: 02/15/2023 FINDINGS: There is moderate cardiomegaly without pulmonary vascular congestion. No effusion, consolid ation, or pneumothorax. IMPRESSION: No acute findings. ACT 112: Negative or not required by law. Electronically signed by: Hiro Helm M.D. 10/18/2024 3:21 PM
--- NOTE | 2024-10-18 15:22 | CT Scan Report ---
CT angio neck with con CLINICAL HISTORY: stroke alert. COMPARISON STUDY: 01/13/2023 TECHNIQUE: Following the IV administration of 150 of Optiray, CT angiogram of the neck was performed from the aortic arch to the skull base. Images are reviewed in the axial, sagittal, and coronal plane s. 3-D MIPS images are created and assessed. IV contrast was administered without complication. All m easurements were calculated based on NASCET criteria. A dose lowering technique was utilized adherin g to the principles of ALARA. FINDINGS: There is mild motion artifact. There are mild atherosclerotic calcifications. The vertebral arteries are diminutive beyond PICA, stable anatomic variant. No significant narrowing or occlusion seen at the vertebral arteries or the common or internal carotid arteries bilaterally. Stable thyroid nodules. There are diffuse cervical spine degenerative changes. No fracture or subluxation seen. IMPRESSION: No significant arterial narrowing or occlusion seen at the neck. ACT 112: Negative or not required by law. The above report was generated using voice recognition software. It may contain grammatical, syntax o r spelling errors. Electronically signed by: Hiro Helm M.D. 10/18/2024 3:20 PM
--- NOTE | 2024-10-18 15:24 | CT Scan Report ---
CT angio head w con CLINICAL HISTORY: 74 years-old Female with stroke alert. Acute strokelike symptoms COMPARISON STUDY: Head CT 10/18/2024, brain MRI 05/03/2023, head CT 02/15/2023 TECHNIQUE: Unenhanced following the IV administration of 1:15 cc of Optiray, CT angiogram of the christopher n was performed from the skull base to the vertex. Images are reviewed in the axial, sagittal, and co ketty planes. 3-D MIPS images are created and assessed. IV contrast was administered without complica tion. All measurements were obtained according to NASCET criteria. A dose lowering technique was util ized adhering to the principles of ALARA. CT DOSE: 1514.27 mGy.cm FINDINGS: CT BRAIN: Dictated separately. Chronic pachymeningeal thickening of the falx cerebri is unchanged. Mild mucosal thickening of the paranasal sinuses with subsequent middle left ethmoid air cell osteoma. Mastoid ai r cells are clear. CT ANGIOGRAM OF THE BRAIN: The imaged bilateral internal carotid arteries are patent. The bilateral anterior and middle cerebral arteries are also patent. The vertebrobasilar system and posterior cerebral arteries are widely [place]udd[place] nt. There is no aneurysm, high-grade stenosis, or proximal branch occlusion identified. Dural sinuses appear patent. IMPRESSION: 1. Unremarkable CTA of the head. 2. Chronic pachymeningeal thickening of the falx cerebri is unchanged dating back to the initial stud ies from 2022. ACT 112: Negative or not required by law. The above report was generated using voice recognition software. It may contain grammatical, syntax o r spelling errors. Electronically signed by: Rafa Haile M.D. 10/18/2024 3:23 PM
[2024-10-18 15:39] LABS: Alanine Aminotransferase 9 U/L (7-52); Albumin Globulin Ratio 1.1 (0.9-2); Alkaline Phosphatase 73 U/L (34-104); Anion Gap 5 (3-11); Aspartate Aminotransferase 18 U/L (13-39); BUN Creatinine Ratio 21.7 (10-20); Bilirubin,Total 0.3 mg/dl (0.2-1.0); Blood Urea Nitrogen 26 mg/dl (6-23); Calcium 9.6 mg/dl (8.6-10.3); Carbon Dioxide 25 mmol/L (21-32); Chloride 108 mmol/L (98-107); Globulin 3.8 gm/dl (2.5-4.0); Glucose 101 mg/dl (70-99(Fasting)); Potassium 4.2 mmol/L (3.5-5.1); Sodium 138 mmol/L (136-145); Total Protein 7.8 gm/dl (6.0-8.3)
[2024-10-18 16:36] LABS: Partial Thromboplastin Ratio 1.1; Partial Thromboplastin Time 30 Seconds (21-31)
[2024-10-18] MEDS ORDERED: PHARMACIST DISCHARGE MED REC CONSULT PRN (17:23)
[2024-10-18] MEDS ORDERED: ACETAMINOPHEN 325 MG TAB PO PRN (17:26)
[2024-10-18] MEDS: ASPIRIN CHEW 324 MG PO STA (17:26)
[2024-10-18] MEDS: ATORVASTATIN 40 MG TAB PO SCH (17:38)
--- NOTE | 2024-10-18 17:57 | History & Physical Report ---
Date of Service October 18, 2024 Assessment & Plan (1) Brain TIA: Plan: Assessment: 1. Question TIA versus CVA versus other etiology of intermittent expressive aphasia. CT of the head negative. CTA of the head and neck negative for critical stenosis or findings. NIH currently 0. Symptoms been waxing and waning on and off for 4 to 5 days. Currently asymptomatic. MRI of the brain has been ordered. Will place her on the stroke protocol. We have consulted nidhi bartlett. Given the patient's history of intracranial hemorrhage January 2024 recommendation is for aspirin only at this time pending MRI. Echocardiogram. High-dose statin therapy. Permissive hypertension. I held her antihypertensives and will permit permissive hypertension pending stroke workup. 2. Heart murmur. 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 Echocardiograms been ordered. 3. "Prediabetes" per the PCPs last note. A1c was 5.8. Will recheck an A1c in the morning. 4. Hypertension. Again we are holding blood pressure medications for permissive hypertension at this time. 5. GERD continue PPI. 6. Mild leukopenia. Appears chronic. Should continue to follow with PCP. 7. History of intracranial hemorrhage March 2024. Plan: As described above. Please refer to orders for further planning. History of Present Illness Chief Complaint: Word finding difficulty Primary Care Provider: Sadie Brito MD This is a pleasant 74-year-old black female for over the last 5 to 6 days and had multiple episodes of word finding difficulty. She knew what she wanted to say but could not verbalize it. This happened today at the [facility] with the [facility] or and therefore she presented to the ER for further evaluation and treatment. In the emergency department she had a CT of the head which was negative. A CTA of the head and neck which were nonacute/critical for stenoses. Her NIH was 0. Her laboratory studies were unremarkable with exception of mild leukopenia which appears to be chronic. The patient did not receive any initial intervention in the ER. When I was called requesting admission, I requested neurology consultation and input. The patient has a history of intracranial hemorrhage March 2024. Consultation was made with neurology of the ER doctor spoke with neurology on-call who is recommending aspirin therapy for now only and complete stroke workup which has been ordered including MRI echocardiogram we will also order high-dose statin therapy at this time. She has been admitted to the stroke service/protocol. Allergies Allergy/AdvReac Type Severity Reaction Status Date / Time latex Allergy Severe FACIAL Verified 10/18/24 15:23 SWELLING, SEVERE ITCHING, LIPS SWOLLEN,FEVER nickel Allergy Mild RASH Verified 10/18/24 15:23 Beta-Blockers AdvReac Severe SUDDEN Verified 10/18/24 15:23 (Beta-Adrenergic Bloc DEPRESSION meloxicam AdvReac Intermediate Hypertensio Verified 10/18/24 15:23 n Home Medications Medication Instructions Recorded Confirmed Type eflornithine 13.9 % topical cream 1 applic topical BID PRN Skin 10/26/22 10/18/24 History (Vaniqa) Irritation amlodipine 10 mg tablet 10 mg PO QPM #90 tabs 07/18/23 10/18/24 Rx folic acid 1 mg tablet 1 mg PO DAILY #90 tabs 07/18/23 10/18/24 Rx lisinopril 20 mg tablet 20 mg PO QPM #90 tabs 07/18/23 10/18/24 Rx loperamide 2 mg capsule (Imodium 2 mg PO Q6H PRN loose stool #30 07/18/23 10/18/24 Rx A-D) caps omeprazole 40 mg capsule,delayed 40 mg PO QPM #90 caps 07/18/23 10/18/24 Rx release Cayenne Suppliment 1 dose PO DAILY 10/18/24 10/18/24 History ashwagandha root extract 300 mg 300 mg PO DAILY 10/18/24 10/18/24 History capsule calcium carbonate (Calcium 600) 600 mg PO DAILY 10/18/24 10/18/24 History cholecalciferol (vitamin D3) 25 25 mcg PO DAILY 10/18/24 10/18/24 History mcg (1,000 unit) capsule (Vitamin D3) cyanocobalamin (vitamin B-12) 1,000 mcg PO DAILY 10/18/24 10/18/24 History 1,000 mcg tablet (Vitamin B-12) diclofenac sodium 1 % topical gel 4 g topical QID PRN JOINT PAIN 10/18/24 10/18/24 History (Voltaren Arthritis Pain) lorazepam 1 mg tablet 1 mg PO DIRECTED PRN anxiety 10/18/24 10/18/24 History omega-3 fatty acids 1,000 mg 1,000 mg PO DAILY 10/18/24 10/18/24 History capsule triamcinolone acetonide 0.025 % 1 applic topical BID PRN SKIN 10/18/24 10/18/24 History topical ointment IRRITATIONS vitamin E 1 applic topical DAILY 10/18/24 10/18/24 History Past Med/Surg History Problem List (Updated 10/18/24 @ 17:08 by Cece Christopher MD) Brain TIA (Acute) Stroke-like symptoms (Acute) History of colon polyps Depression GERD (gastroesophageal reflux disease) Hypercholesterolemia (Acute) pt denies HTN (hypertension) (Acute) Osteopenia (Acute) Prediabetes (Acute) no medications Medical History (Updated 10/18/24 @ 17:08 by Cece Christopher MD) Torn meniscus R knee 08/2023 Sleep apnea no cpap for the last several months Anemia pt denies Attention deficit disorder without hyperactivity pt denies Obesity Osteoarthritis of hip Postmenopausal atrophic vaginitis Transient ischemic attack pt denies Tubular adenoma of colon Surgical History History of adenoidectomy History of tonsillectomy Status post uvulopalatopharyngoplasty History of esophagogastroduodenoscopy (EGD) History of colonoscopy History of appendectomy Status post total hip replacement, right S/P total abdominal hysterectomy S/P hemorrhoidectomy S/P cholecystectomy S/P cataract surgery S/P knee surgery Family History Father Lung cancer Brother Prostate cancer Mother Cerebral hemorrhage Sister Stroke Other No family history of adverse response to anesthesia Denies family history of Ovarian cancer Osteoporosis Myocardial infarction Breast cancer Colonic polyp Social History (Updated 04/04/24 @ 14:31 by Stefania Palma LPN) Smoking Status: Unknown if ever smoked Tobacco Type: Cigarettes Age Started Using Tobacco: 18; Age Quit Using Tobacco: 26; packs per day: 0.2; Second Hand Exposure: No (hx); Do You Dip or Chew Tobacco: No; Hx Alcohol Use: Yes Alcohol type: wine and hard liquor Alcohol Intake Frequency: Monthly or Less Hx Substance Use: No Preferred Language: French Communication Ability: Effective Visual Impairment: Limited Hearing Ability: Normal Technician Preventative Medicine Required: No Beliefs That Will Affect Care: Spiritual marital status: Current Living Situation: Spouse current occupational status: retired 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 She does report that her mother had a history of intracranial hemorrhage but no other family history of cerebrovascular disease in her parents or siblings. The patient denies use of tobacco or illicit street drugs and only occasional alcoholic drink Physical Exam Physical Exam: In General: In general very pleasant 74-year-old female who is alert and oriented x 3 at the time of my exam. HEENT: Normocephalic atraumatic pupils are equal round and reactive to light bilaterally. No scleral icterus no conjunctival injection external auditory canals are patent septum is in the midline nose is without discharge oral mucosa is pink and moist without lesion. She states that she has very slight decrease sensation to light touch on the right side of the forehead compared to the left when testing. Tongue protrudes in the midline NECK: Supple no rigidity no lymphadenopathy no thyromegaly no carotid bruits no JVD no masses. HEART: Regular rate and rhythm I do not appreciate any ectopy or rub. The patient has a 3 out of 6 systolic ejection murmur best heard at the right sternal border. LUNGS: Clear to auscultation bilaterally and anteriorly with no evidence of adventitious sounds/wheezes rales or rhonchi. ABDOMEN: Soft nontender, no rebound, no peritoneal signs, positive bowel sounds, no appreciable organomegaly. EXTREMITIES: Intact, no peripheral cyanosis, clubbing or edema. Strength is 5 out of 5 in extremities x4, no pathological reflexes. No cerebellar sign. No loss in sensation of fine pinprick. No pronator drift. NEUROLOGICAL: Cranial nerves II through XII are grossly intact with no focal deficit elicited upon examination. No tremor. Results & Data Results & Data Vital Signs (Past 12 Hours) Vital Signs Temp Pulse Pulse Resp BP BP Pulse Ox 10/18/24 15:41 89 18 184/103 H 96 10/18/24 14:51 86 10/18/24 14:49 99 10/18/24 14:49 99 10/18/24 14:39 36.7 C 92 H 19 150/102 H 98 O2 Del Method 10/18/24 15:41 Room Air 10/18/24 14:51 10/18/24 14:49 Room Air 10/18/24 14:49 Room Air 10/18/24 14:39 Room Air Code Status & VTE Plan Code Status Full code. I personally discussed with patient. VTE Prophylaxis Plan VTE Prophylaxis will be ordered: Yes PG Care Time/CCT Total # of Minutes Spent Total Time Spent with Patient: Total time spent is greater than 50% in coordination of care (as documented) at patient's floor/unit and/or counseling patient: Coding Level of Care Code 74542 INT INP/OBS CARE 3/75MIN Diagnoses Brain TIA G45.9
[2024-10-18] MEDS: LORazepam 2 MG/1 ML VIAL IV STA (19:44)
[2024-10-18] MEDS: GADOBUTROL 65ML VIAL IV ONE (21:01)
--- NOTE | 2024-10-18 22:26 | Magnetic Resonance Report ---
Exam(s): MRI HEAD W/WO Contrast IV Amt: 7.8ml gadavist at 20:57 EXAM: MR Head Without and With Intravenous Contrast CLINICAL HISTORY: Reason for exam: Stroke protocol. TECHNIQUE: Magnetic resonance images of the head/brain without and with intravenous contrast in multiple planes. CONTRAST: Patient received 7.8ml Gadavist at 20:57 of IV contrast COMPARISON: CT head from October 18, 2024 and MRI brain from May 03, 2023 FINDINGS: Brain: Persistent slight thickening and enhancement of the tentorium and interhemispheric falx measuring up to 3 mm. This is nonspecific but unchanged. Mild periventricular and patchy deep white matter T2 hyperintensities consistent with chronic small vessel disease. No areas of diffusion restriction are seen to indicate acute stroke. No hemorrhage. Ventricles: Unremarkable. No ventriculomegaly. Bones/joints: Mild hyperostosis of the skull, unchanged. No acute fracture. Sinuses: Unremarkable as visualized. No acute sinusitis. Mastoid air cells: Unremarkable as visualized. No mastoid effusion. Orbits: Unremarkable as visualized. IMPRESSION: 1. Persistent slight thickening and enhancement of the tentorium and interhemispheric falx measuring up to 3 mm. This is nonspecific but unchanged. 2. Mild periventricular and patchy deep white matter T2 hyperintensities consistent with chronic small vessel disease. No areas of diffusion restriction are seen to indicate acute stroke. Electronically signed by: Toni Ventura MD 10/18/24 22:25 PM
[2024-10-19] MEDS: PANTOprazole 40 MG TAB PO SCH (02:47)
[2024-10-19 06:08] LABS: Basophils # (auto) 0.01 K/uL (0.00-0.20); Basophils % (auto) 0.3 %; Eosinophils # (auto) 0.12 K/uL (0.00-0.50); Eosinophils % (auto) 3.3 %; Hemoglobin 11.1 g/dl (12.0-16.0); Immature Granulocytes # (auto) 0.01 K/uL (0.01-0.20); Immature Granulocytes % (auto) 0.3 %; Lymphocytes % (auto) 41.8 %; Mean Corpuscular Hemoglobin 28.2 pg (25.0-34.0); Mean Corpuscular Hgb Conc 32.6 g/dL (32.0-36.0); Mean Corpuscular Volume 86.5 fL (80.0-100.0); Mean Platelet Volume 9.4 fL (9.4-12.4); Monocytes # (auto) 0.71 K/uL (0.11-0.59); Monocytes % (auto) 19.8 %; Neutrophils # (auto) 1.24 K/uL (1.40-6.50); Neutrophils % (auto) 34.5 %; Platelet Count 226 K/uL (130-400); RDW Coefficient of Variation 13.8 % (11.5-14.5); RDW Standard Deviation 43.6 fL (36.4-46.3); Red Blood Count 3.93 M/uL (4.20-5.40); White Blood Count 3.59 K/ul (4.8-10.8)
[2024-10-19 06:28] LABS: Albumin Globulin Ratio 0.9 (0.9-2); Albumin Level 3.6 gm/dl (3.4-5.0); BUN Creatinine Ratio 16.8 (10-20); Bilirubin,Total 0.5 mg/dl (0.2-1.0); Calcium 9.8 mg/dl (8.6-10.3); Creatinine Clr Calc Pharmacy 39.7 ml/min; Globulin 3.8 gm/dl (2.5-4.0); Potassium 4.3 mmol/L (3.5-5.1); Total Protein 7.4 gm/dl (6.0-8.3)
[2024-10-19 06:41] LABS: Thyroid Stimulating Hormone 0.83 uIu/ml (0.300-4.500)
--- NOTE | 2024-10-19 07:44 | Neurology Consultation ---
Date of Consultation October 19, 2024 Assessment & Plan (1) Stroke-like symptoms: Plan 74-year-old female with a 6-day history of hesitant speech, occurring in the context of travel, stress, caring for her spouse, in the process of selling their home. Episode preceded by a fall with possible minor head injury. Patient's imaging including CT of the head, CTA of the head and neck, and brain MRI are fairly unrevealing. No evidence of stroke, hemorrhage, or acute process. She has chronic thickening of the falx cerebri. This finding is nonspecific. It is unclear to me if this finding is related to a previous small nontraumatic subdural hemorrhage as stated in her record. Given the possibility that her current symptoms are related to TIA, I do not object to aspirin 81 mg/day. Agree with atorvastatin, goal LDL 70 or less. Follow-up with results of transthoracic echocardiogram with bubble study. Would also recommend 30-day mobile outpatient cardiac telemetry to assess for possible occult atrial fibrillation. I will order an EEG given the possibility that her symptoms could be due to nonconvulsive seizure activity. She has had syncope and facial paresthesias in the past. Would not start an antiseizure medication at this time, however. Blood pressure management per stroke protocol. Speech therapy consultation. May follow-up with myself or an IRIS in neurology clinic in 2 to 3 weeks. History of Present Illness Reason for Consultation: stroke? 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 She had a minor fall into a bathtub while in the [place] area prior to symptom onset, she struck the back of her head, there was no loss of consciousness or significant neurologic symptoms immediately afterwards. She has a history of syncope and some nonspecific thickening of the falx cerebri identified on imaging a few years ago that has not significantly changed. This morning, she continues to exhibit some mild speech hesitancy, no aphasia. She feels modestly improved. She relates some recent stress related to caring for her spouse. They are in the process of looking for a new home, downsizing. CT of the head including CTA of the head and neck are unremarkable. Brain MRI negative for stroke, hemorrhage, or acute process. There is nonspecific thickening of the falx cerebri, unchanged compared with previous imaging done in the summer 2022. I independently reviewed these images. An electrocardiogram reveals sinus rhythm with occasional PVCs. Allergies Allergy/AdvReac Type Severity Reaction Status Date / Time latex Allergy Severe FACIAL Verified 10/18/24 15:23 SWELLING, SEVERE ITCHING, LIPS SWOLLEN,FEVER nickel Allergy Mild RASH Verified 10/18/24 15:23 Beta-Blockers AdvReac Severe SUDDEN Verified 10/18/24 15:23 (Beta-Adrenergic Bloc DEPRESSION meloxicam AdvReac Intermediate Hypertensio Verified 10/18/24 15:23 n Home Medications Medication Instructions Recorded Confirmed Type eflornithine 13.9 % topical cream 1 applic topical BID PRN Skin 10/26/22 10/18/24 History (Vaniqa) Irritation amlodipine 10 mg tablet 10 mg PO QPM #90 tabs 07/18/23 10/18/24 Rx folic acid 1 mg tablet 1 mg PO DAILY #90 tabs 07/18/23 10/18/24 Rx lisinopril 20 mg tablet 20 mg PO QPM #90 tabs 07/18/23 10/18/24 Rx loperamide 2 mg capsule (Imodium 2 mg PO Q6H PRN loose stool #30 07/18/23 10/18/24 Rx A-D) caps omeprazole 40 mg capsule,delayed 40 mg PO QPM #90 caps 07/18/23 10/18/24 Rx release Cayenne Suppliment 1 dose PO DAILY 10/18/24 10/18/24 History ashwagandha root extract 300 mg 300 mg PO DAILY 10/18/24 10/18/24 History capsule calcium carbonate (Calcium 600) 600 mg PO DAILY 10/18/24 10/18/24 History cholecalciferol (vitamin D3) 25 25 mcg PO DAILY 10/18/24 10/18/24 History mcg (1,000 unit) capsule (Vitamin D3) cyanocobalamin (vitamin B-12) 1,000 mcg PO DAILY 10/18/24 10/18/24 History 1,000 mcg tablet (Vitamin B-12) diclofenac sodium 1 % topical gel 4 g topical QID PRN JOINT PAIN 10/18/24 10/18/24 History (Voltaren Arthritis Pain) lorazepam 1 mg tablet 1 mg PO DIRECTED PRN anxiety 10/18/24 10/18/24 History omega-3 fatty acids 1,000 mg 1,000 mg PO DAILY 10/18/24 10/18/24 History capsule triamcinolone acetonide 0.025 % 1 applic topical BID PRN SKIN 10/18/24 10/18/24 History topical ointment IRRITATIONS vitamin E 1 applic topical DAILY 10/18/24 10/18/24 History Patient History Medical History Torn meniscus R knee 08/2023 Sleep apnea no cpap for the last several months Anemia pt denies Attention deficit disorder without hyperactivity pt denies Obesity Osteoarthritis of hip Postmenopausal atrophic vaginitis Transient ischemic attack pt denies Tubular adenoma of colon Surgical History History of adenoidectomy History of tonsillectomy Status post uvulopalatopharyngoplasty with tonsillectomy & adenoidectomy (~2015) History of esophagogastroduodenoscopy (EGD) History of colonoscopy History of appendectomy Status post total hip replacement, right S/P total abdominal hysterectomy removal of uterus/bilateral tubes/cervix S/P hemorrhoidectomy S/P cholecystectomy S/P cataract surgery right S/P knee surgery pt denies Family History Father Lung cancer Brother Prostate cancer Mother Cerebral hemorrhage Sister Stroke Other No family history of adverse response to anesthesia Denies family history of Ovarian cancer Osteoporosis Myocardial infarction Breast cancer Colonic polyp Social History Smoking Status: Never smoker Tobacco Type: Cigarettes Age Started Using Tobacco: 18; Age Quit Using Tobacco: 26; packs per day: 0.2; Second Hand Exposure: No (hx); Do You Dip or Chew Tobacco: No; Hx Alcohol Use: Yes Alcohol type: other Alcohol Intake Frequency: Monthly or Less Hx Substance Use: No Preferred Language: Mozambican Communication Ability: Effective Visual Impairment: Limited Hearing Ability: Normal Early Childhood Aide Classroom Required: No Beliefs That Will Affect Care: None marital status: Current Living Situation: Spouse current occupational status: retired 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 [employer] How many Children do You have: 2 Feels Safe at Home: Yes Childhood Exposure to Second-Hand Smoke: Yes Diet: regular caffeine: Yes during the past year weight has: remained stable Dental Care, Regularly: No Physical Activity Frequency: 1-2 Times per Week Seatbelt Use: always Sunscreen Use: Yes Assistive Devices: CPAP and Glasses Review of Systems Constitutional: no fever and no chills Eyes: no blind spots and no diplopia Ear, Nose, Mouth, Throat: no hearing loss Respiratory: no cough and no dyspnea Cardiovascular: no chest pain Gastrointestinal: no nausea and no vomiting Genitourinary: no dysuria Musculoskeletal: no myalgia Integumentary: no rash and no lesions Neurologic: as per Subjective / HPI and + abnormal speech; no gait abnormality, no localized weakness, no loss of sensation, no tremor(s), no headache(s), no confusion and no memory loss Psychiatric: no depression and no anxiety Hematologic / Lymphatic: no easy bleeding and no easy bruising Exam (Neuro) Constitutional: well developed and well nourished; no acute distress Eyes: normal visual richards by confrontation, PERRL, normal accommodation and EOM intact bilaterally; no nystagmus Neurologic: Oriented to:: Person, Place and Time Memory: Short Term Intact and Remote Intact Attention: Span Intact and Concentration Intact Language: Naming Objects and Repeating Phrases Speech Fluency: Stuttering (mild) and Other (Stuttering, hesitant speech, mild); negative Dysarthria Speech Aphasia: negative Aphasia Fund of Knowledge: Current Events, Past History and Vocabulary Cranial Nerves: Normal II (Visual richards full to confrontation, visual acuity normal), III, IV, (Pupils equal round reactive to light and accommodation, eye movements normal), V (Facial sensation intact), VII (There is no facial droop or weakness), VIII (Hearing intact), IX, X (Palate elevates to midline), XI (Shoulder shrug intact) and XII (Tongue protrudes to midline) Motor Strength: Normal Lower Extremities and Normal Upper Extremities; negative Pronator Drift Motor Tone: Normal Lower Extremities and Normal Upper Extremities Muscle Bulk/Involuntary Movements: No Involuntary Movements; negative Muscle Atrophy Sensation: Light Touch Intact, Pain/Temperature Intact, Vibration Intact and Proprioception Intact Coordination: Normal; negative Limited Balance, Dysdiadochokinesia, Finger-Nose Abnormal or Heel-Hayse Abnormal Deep Tendon Reflexes: Rt Triceps: 2+, Lt Triceps: 2+, Rt Biceps: 2+, Lt Biceps: 2+, Rt Brachioradialis: 2+, Lt Brachioradialis: 2+, Rt Patellar: 2+, Lt Patellar: 2+, Rt Ankle: 2+ and Lt Ankle: 2+ Special Tests: negative Babinski Present Details: No difficulty with object naming, Word repetition, reading, language comprehension Results & Data Vital Signs (Past 12 Hours) Vital Signs Temp Pulse Pulse Resp BP BP Pulse Ox 10/19/24 05:41 67 10/19/24 02:48 36.5 C 53 L 16 148/94 H 97 10/18/24 23:07 36.5 C 57 L 20 160/97 H 98 10/18/24 20:21 73 20 184/113 H 98 O2 Del Method 10/19/24 05:41 10/19/24 02:48 Room Air 10/18/24 23:07 Room Air 10/18/24 20:21 Room Air Laboratory Results WBC 3.59, hemoglobin 11.1, hematocrit 34.0, platelet count 226, sodium 138, potassium 4.3, BUN 20, creatinine 1.19, glucose 94, calcium 9.8, magnesium 2.0, AST 16, ALT 7, triglycerides 73, cholesterol 166, LDL 110, HDL 41, TSH 0.830 Coding Level of Care Code 11720 INT INP/OBS CARE /75MIN Diagnoses Stroke-like symptoms R29.90 Time Spent (min) 80 Comment Total time includes patient contact, chart review, counseling, note preparation
[2024-10-19 08:38] LABS: Estimated Average Glucose 123 mg/dl; Hemoglobin A1C 5.9 % (4.5-5.6)
[2024-10-19] MEDS: CHOLECALCIFEROL 25 MCG (1000 UNITS) TAB PO SCH (09:00)
[2024-10-19] MEDS: CALCIUM CARBONATE 1250MG TAB PO SCH (09:00)
[2024-10-19] MEDS: CYANOCOBALAMIN (B-12) 500 MCG TABLET PO SCH (09:00)
[2024-10-19] MEDS: FOLIC ACID 1 MG TAB PO SCH (09:00)
[2024-10-19] MEDS: lisinopril 20 MG TAB PO SCH (09:00)
[2024-10-19] MEDS: ASPIRIN 81 MG ECTAB PO SCH (09:00)
--- NOTE | 2024-10-19 09:07 | XCELERA ---
[id number] [id number]
--- NOTE | 2024-10-19 10:12 | Electrocardiogram Report ---
Test Reason : Blood Pressure : */* mmHG Vent. Rate : 81 BPM Atrial Rate : 81 BPM P-R Int : 154 ms QRS Dur : 82 ms QT Int : 374 ms P-R-T Axes : 38 -41 17 degrees QTcB Int : 434 ms Normal sinus rhythm with occasional Premature ventricular complexes Left atrial enlargement Left axis deviation Abnormal ECG When compared with ECG of 15-Feb-2023 13:05, QRS axis Shifted left Confirmed by Rey Lal ([id number]) on 10/19/2024 10:12:21 AM Referred By: REFERRED SELF Confirmed By: Rey Lal
--- NOTE | 2024-10-19 11:15 | Pharmacy Report ---
- Date of Service October 19, 2024 - Pharmacy CVA/TIA Medication Review Medications to Prevent Stroke handout has been added to the patients discharge packet. Antiplatelet(s) * ASA 81 mg daily Cholesterol * High intensity statin: atorvastatin 80 mg daily DVT Prophylaxis * SCD knee Therapeutic Anticoagulation * No history of Afib/Aflutter noted Type 2 Diabetes * Patient does not have T2DM
--- NOTE | 2024-10-19 15:42 | Electroencephalogram ---
EEG Procedure Note Date of Service October 19, 2024 Start / End Times Start Time: 10:35 AM End Time: 10:55 AM Referring Physician Dillon Ledesma MD History Hesitant speech, strokelike episode, seizure-like episode Home Medication List Medication Instructions Recorded Confirmed Type eflornithine 13.9 % topical cream 1 applic topical BID PRN Skin 10/26/22 10/18/24 History (Vaniqa) Irritation amlodipine 10 mg tablet 10 mg PO QPM #90 tabs 07/18/23 10/18/24 Rx folic acid 1 mg tablet 1 mg PO DAILY #90 tabs 07/18/23 10/18/24 Rx lisinopril 20 mg tablet 20 mg PO QPM #90 tabs 07/18/23 10/18/24 Rx loperamide 2 mg capsule (Imodium 2 mg PO Q6H PRN loose stool #30 07/18/23 10/18/24 Rx A-D) caps omeprazole 40 mg capsule,delayed 40 mg PO QPM #90 caps 07/18/23 10/18/24 Rx release Cayenne Suppliment 1 dose PO DAILY 10/18/24 10/18/24 History ashwagandha root extract 300 mg 300 mg PO DAILY 10/18/24 10/18/24 History capsule calcium carbonate (Calcium 600) 600 mg PO DAILY 10/18/24 10/18/24 History cholecalciferol (vitamin D3) 25 25 mcg PO DAILY 10/18/24 10/18/24 History mcg (1,000 unit) capsule (Vitamin D3) cyanocobalamin (vitamin B-12) 1,000 mcg PO DAILY 10/18/24 10/18/24 History 1,000 mcg tablet (Vitamin B-12) diclofenac sodium 1 % topical gel 4 g topical QID PRN JOINT PAIN 10/18/24 10/18/24 History (Voltaren Arthritis Pain) lorazepam 1 mg tablet 1 mg PO DIRECTED PRN anxiety 10/18/24 10/18/24 History omega-3 fatty acids 1,000 mg 1,000 mg PO DAILY 10/18/24 10/18/24 History capsule triamcinolone acetonide 0.025 % 1 applic topical BID PRN SKIN 10/18/24 10/18/24 History topical ointment IRRITATIONS vitamin E 1 applic topical DAILY 10/18/24 10/18/24 History Inpatient Medication List Aspirin (Aspirin 81 Mg Ectab) 81 mg PO DAILY MINNIE Stop: 11/18/24 08:59 Last Admin: 10/19/24 09:00 Dose: 81 mg Documented By: WS Atorvastatin Calcium (Atorvastatin 40 Mg Tab) 80 mg PO QAM MINNIE Stop: 11/17/24 17:29 Last Admin: 10/19/24 14:50 Dose: 80 mg Documented By: Admin: 10/18/24 17:38 Dose: 80 mg Documented By: QGV Calcium Carbonate (Calcium Carbonate 1250mg Tab) 1 tab PO DAILY MINNIE Stop: 11/18/24 08:59 Last Admin: 10/19/24 09:00 Dose: 1 tab Documented By: WS Cyanocobalamin (Cyanocobalamin (B-12) 500 Mcg Tablet) 1,000 mcg PO DAILY MINNIE Stop: 11/18/24 08:59 Last Admin: 10/19/24 09:00 Dose: 1,000 mcg Documented By: DILLAN Folic Acid (Folic Acid 1 Mg Tab) 1 mg PO DAILY MINNIE Stop: 11/18/24 08:59 Last Admin: 10/19/24 09:00 Dose: 1 mg Documented By: DILLAN Lisinopril (Lisinopril 20 Mg Tab) 20 mg PO QAM MINNIE Stop: 11/18/24 08:59 Last Admin: 10/19/24 09:00 Dose: 20 mg Documented By: DILLAN Pantoprazole Sodium (Pantoprazole 40 Mg Tab) 40 mg PO QPM MINNIE Stop: 11/17/24 21:34 Last Admin: 10/19/24 02:47 Dose: 40 mg Documented By: [facility] Vitamin D (Cholecalciferol 25 Mcg (1000 Units) Tab) 25 mcg PO DAILY MINNIE Stop: 11/18/24 08:59 Last Admin: 10/19/24 09:00 Dose: 25 mcg Documented By: WS Discontinued Medications Aspirin (Aspirin Chew 324 Mg) 324 mg PO NOW STA Stop: 10/18/24 17:05 Last Admin: 10/18/24 17:26 Dose: 324 mg Documented By: QGV Gadobutrol (Gadobutrol 65ml Vial) 7.8 ml IV ONCE ONE Stop: 10/18/24 21:01 Last Admin: 10/18/24 21:01 Dose: 7.8 ml Documented By: SEE Ioversol (Optiray 320 125ml) 115 ml IV ONCE ONE Stop: 10/18/24 14:58 Last Admin: 10/18/24 15:00 Dose: 115 ml Documented By: GUILHERME Lorazepam (Lorazepam 2 Mg/1 Ml Vial) 0.5 mg IV NOW STA Stop: 10/18/24 18:15 Last Admin: 10/18/24 19:44 Dose: 0.5 mg Documented By: HARSH Description This is a 21 electrode EEG with a single channel dedicated to limited EKG. The electrodes were placed in accordance with the International 10-20 system. There is a posterior dominant rhythm of 9 to 10 Hz which is symmetrically distributed and attenuates with eye opening. There is a normal anterior to posterior organization. Photic stimulation is unremarkable. Hyperventilation is not performed. There is a symmetric frontal beta rhythm. There is a minimal degree of admixed generalized theta activity in the latter part of the study. There is no focal slowing. There are no epileptiform abnormalities. Interpretation Normal-appearing awake/drowsy EEG. [facility] Procedure Codes Indication for Procedure (1) Stroke-like symptoms: (2) Seizure-like activity: Neurology Neurology: 15158 EEG include record awake & drowsy
--- NOTE | 2024-10-19 17:56 | Hospitalist Progress Note ---
Date of Service October 19, 2024 Assessment & Plan (1) Concussion: (2) Brain TIA: Plan This patient is a 74-year-old female with a history of subdural hematoma, HTN, prediabetes, depression, GERD, HLD, who presents with some cognitive impairment and difficulty with word finding intermittently over the last 5 days since a fall with head trauma on 10/14. #Expressive aphasia/mild cognitive impairment/concussion from closed head trauma -CT head negative for acute issues, CT angiogram head neck negative, MRI of the brain shows thickened falx cerebri which is chronic since previous head bleed, but no acute CVA. Appreciate neurology consultation-recommended EEG-negative for seizures. Could be TIA but I do believe this is likely a postconcussive syndrome given the headache and the head trauma. Echocardiogram is normal and with negative bubble study, no arrhythmias on telemetry. TSH normal and lipid panel acceptable. - Okay to resume home antihypertensives as blood pressures are elevated - Okay to continue aspirin and statin for now - Advised mental and physical rest for concussion - Continue to monitor overnight - Follow-up with neurology in 2 to 3 weeks as an outpatient - Recommend 30-day cardiac event monitor in case of TIA #Prediabetes-HgbA1c only 5.9% - No treatment needed at this time - Follow as an outpatient #Hypertension-blood pressures are now elevated after missing her antihyperte nsives - Restart home amlodipine and lisinopril - Monitor blood pressures #GERD-continue PPI Disposition-continue to monitor on telemetry overnight and discharged home likely tomorrow. Discussed care with her daughter at the bedside Admission and Anticipated Discharge Date Admission Date: October 18, 2024 Subjective Patient reports ongoing pain in the back of her head where she hit it when she fell in a hotel shower 5 days ago. We discussed her history over the past 5 days and her story did tend to change at times and she was a bit confused about times and dates and days of the week. She does admit to feeling maybe a little bit cognitively off at times. Her daughter at the bedside thinks that she is mostly at her baseline but maybe a little more confused than she was earlier in the day. Telemetry with first-degree AV block and sinus rhythm, PVCs some bigeminy, rates in the 70s Physical Exam Constitutional: WD/WN, vitals as above Respiratory: normal respiratory effort, lungs clear to auscultation Cardiovascular: RRR, no murmur, no edema Gastrointestinal (Abdomen): normal bowel sounds, soft, nontender, no hepatosplenomegaly Neurologic: PERRL, EOMI, accommodation nl, no face palsy, no dysarthria CN's II-XI intact bilaterally; no focal motor deficits Speech / Cognition: + abnormal cognition (Mildly impaired at times); normal speech Motor/Sensory: no tremor Psychiatric: Orientation: alert, oriented to person, oriented to place, oriented to time (Except not oriented to date) and cooperative Results & Data Results & Data Vital Signs (Past 12 Hours) Vital Signs Temp Pulse Resp BP Pulse Ox O2 Del Method 10/19/24 16:06 36.7 C 59 L 20 166/96 H 100 Room Air 10/19/24 12:41 36.4 C L 80 20 122/84 98 Room Air 10/19/24 08:13 36.5 C 18 146/97 H 97 Room Air Laboratory Results CBC, BMP, magnesium, LFTs, TSH, lipid panel, HgbA1c reviewed Diagnostic Findings EEG, MRI brain reviewed PG Care Time/CCT Total # of Minutes Spent Total Time Spent with Patient: Total time spent is greater than 50% in coordination of care (as documented) at patient's floor/unit and/or counseling patient: Coding Level of Care Code 24840 SUB INP/OBS CARE 3/50MIN Diagnoses Concussion S06.0XAA Brain TIA G45.9
[2024-10-19] MEDS: amLODIPine BESYLATE 5 MG TAB PO SCH (21:27)
[2024-10-20 07:59] VITALS: BP 131/86; PULSE 81; RESP 20; TEMP 97.5; O2SAT 96
--- NOTE | 2024-10-20 10:10 | Discharge Summary ---
Discharge Summary Date of Service October 20, 2024 Principal Dx & Hospital Course #1 = Principal Diagnosis (1) Concussion: (2) Brain TIA: (3) HTN (hypertension): Plan This patient is a 74-year-old female with a history of subdural hematoma, HTN, prediabetes, depression, GERD, HLD, who presents with some cognitive impairment and difficulty with word finding intermittently over the last 5 days since a fall with head trauma on 10/14. She now recalls that she also forgot to take her BP meds for 5 days prior to admission as she misplaced them. #Expressive aphasia/mild cognitive impairment/concussion from closed head trauma -CT head negative for acute issues, CT angiogram head neck negative, MRI of the brain shows thickened falx cerebri which is chronic since previous head bleed, but no acute CVA. Appreciate neurology consultation-recommended EEG-negative for seizures. Could be TIA but I do believe this is likely a postconcussive syndrome given the headache and the head trauma. Uncontrolled BPs fro not taking antihypertensives also may have played a role in a hypertensive encephalopathy. Echocardiogram is normal and with negative bubble study, no arrhythmias on telemetry. TSH normal and lipid panel acceptable. Her mentation and speech are much improved on day of discharge. -continue BP control - started on aspirin and statin in case of TIA - Advised mental and physical rest for concussion, no driving until after seen by PCP and cleared from concussion - Follow-up with neurology in 2 to 3 weeks as an outpatient - Recommend 30-day cardiac event monitor in case of TIA-ordered by nurse navigator -Speech therapy Rx given for outpt treatment #Prediabetes-HgbA1c only 5.9% - No treatment needed at this time - Follow as an outpatient #Hypertension-blood pressures elevated after missing her antihypertensives and then improved with resuming them - continue home amlodipine and lisinopril - Monitor blood pressures at home and w/ PCP #GERD-continue PPI Disposition-much improved, stable for dc to home. Discussed care with her daughter at the bedside Notes For Next Care Provider Medication Changes From Visit added ASA, atorvastatin, APAP prn Admission HPI Per Admitting Provider This is a pleasant 74-year-old black female for over the last 5 to 6 days and had multiple episodes of word finding difficulty. She knew what she wanted to say but could not verbalize it. This happened today at the bank with the [employer] or and therefore she presented to the ER for further evaluation and treatment. In the emergency department she had a CT of the head which was negative. A CTA of the head and neck which were nonacute/critical for stenoses. Her NIH was 0. Her laboratory studies were unremarkable with exception of mild leukopenia which appears to be chronic. The patient did not receive any initial intervention in the ER. When I was called requesting admission, I requested neurology consultation and input. The patient has a history of intracranial hemorrhage March 2024. Consultation was made with neurology of the ER doctor spoke with neurology on-call who is recommending aspirin therapy for now only and complete stroke workup which has been ordered including MRI echocardiogram we will also order high-dose statin therapy at this time. She has been admitted to the stroke service/protocol. Discharge Exam Constitutional WD/WN, vitals as above Respiratory normal respiratory effort Neurologic CN's II-XI intact bilaterally; no focal motor deficits Speech / Cognition: normal speech, no expressive aphasia and normal cognition Psychiatric Orientation: alert and cooperative Discharge Plan Discharge Items Patient Disposition: Home - Self-Care Reason For Visit: TIA Discharge Diagnosis: Post concussive syndrome-with associated speech/cognitive issues versus transient ischemic attack Uncontrolled hypertension Condition on Discharge: Good Activity: As commented below Lifting: No more than 5 pounds Bathing: No limitations Exercise Comment: No heavy exertion. Try to refrain from excessive physical/mental activity Driving/Machine Use: No driving until cleared by your PCP Non-emergency contact: Primary Care Provider and Neurologist Call non-emergency contact if: you have any medication questions and your symptoms worsen Follow-up/Referrals: Dillon Ledesma MD [Physician] - (Follow-up in 2 to 3 weeks with neurology.) Sadie Brito MD [Primary Care Provider] - (Follow-up within 1 to 2 weeks) Diet: Heart Healthy Addtl Attending Provider Instructions: You are admitted with speech difficulties and had a workup for stroke and seizure which was all negative. Your symptoms may be related to your recent fall with head injury resulting in a concussion. It is important to physically and mentally rest while recovering from a concussion. Try to avoid excessive computer and screen time or difficult reading. Avoid exercise but it is okay to do light walking. Your primary care physician can tell you when it is okay to resume your normal activities. It is still possible that this could have been a transient ischemic attack (TIA) or mini stroke. Because of that, you are started on a baby aspirin a day and a strong medication to help prevent future TIA/stroke. Your blood pressures were high likely from forgetting to take/misplacing your medications and this also may have contributed to some of your cognitive issues this week. You were given a prescription for outpatient Speech Therapy. Please call and schedule this appointment at your convenience. Pending Studies at Discharge: No Stand-Alone Forms: My [facility] Medications and DC Order Prescriptions: New acetaminophen 325 mg Tablet 650 mg PO Q4H PRN (Reason: pain) Qty: 30 0RF aspirin 81 mg Tablet,Delayed Release (Dr/Ec) 81 mg PO DAILY Qty: 30 0RF atorvastatin 40 mg Tablet 40 mg PO QAM Qty: 30 0RF Continued Vaniqa 13.9 % cream 1 applic TOP BID PRN (Reason: Skin Irritation) folic acid 1 mg tablet 1 mg PO DAILY Qty: 90 1RF loperamide [Imodium A-D] 2 mg capsule 2 mg PO Q6H PRN (Reason: loose stool) Qty: 30 2RF amlodipine 10 mg tablet 10 mg PO QPM Qty: 90 1RF lisinopril 20 mg tablet 20 mg PO QPM Qty: 90 1RF omeprazole 40 mg capsule,delayed release(DR/EC) 40 mg PO QPM Qty: 90 1RF omega-3 fatty acids 1,000 mg Capsule 1,000 mg PO DAILY cyanocobalamin (vitamin B-12) [Vitamin B-12] 1,000 mcg Tablet 1,000 mcg PO DAILY calcium carbonate [Calcium 600] 600 mg calcium (1,500 mg) Tablet 600 mg PO DAILY vitamin E [Vitamin E Oil] Oil 1 applic TOPICAL DAILY cholecalciferol (vitamin D3) [Vitamin D3] 25 mcg (1,000 unit) Capsule 25 mcg PO DAILY ashwagandha root extract 300 mg Capsule 300 mg PO DAILY Cayenne Suppliment 1 dose PO DAILY triamcinolone acetonide 0.025 % ointment 1 applic topical BID PRN (Reason: SKIN IRRITATIONS) Patient Comments: prefers this to go to [facility] lorazepam 1 mg tablet 1 mg PO DIRECTED PRN (Reason: anxiety) Rx Instructions: Take 30-60 min prior to MRI diclofenac sodium [Voltaren Arthritis Pain] 1 % gel 4 g topical QID PRN (Reason: JOINT PAIN) Discharge Orders: Discharge Order (Routine); Ordered 10/20/24 Ordered By: Neelam Dent Admission Data Admit Date/Time: 10/18/24 17:26 Attending Provider: Neelam Dent Admit Provider: Bj Yanez Primary Care Provider: Sadie Brito Other Providers: Bj Yanez; Dillon Ledesma Hospital Stay Data Consultations 10/18/24 16:56 ED Decision to Admit Stat 10/18/24 17:23 Consult Neurology Routine Diagnostic Imagining Performed 10/18/24 14:49 CT head/brain wo con Stat CTA head w con [CT angio head w con] Stat CTA neck with con [CT angio neck with con] Stat 10/18/24 17:23 MR brain wo/w con Routine Pending Results Patient Have Any Pending Studies at Discharge: No Discharge Instructions Given to Patient (Per Discharging Provider) You are admitted with speech difficulties and had a workup for stroke and seizure which was all negative. Your symptoms may be related to your recent fall with head injury resulting in a concussion. It is important to physically and mentally rest while recovering from a concussion. Try to avoid excessive computer and screen time or difficult reading. Avoid exercise but it is okay to do light walking. Your primary care physician can tell you when it is okay to resume your normal activities. It is still possible that this could have been a transient ischemic attack (TIA) or mini stroke. Because of that, you are started on a baby aspirin a day and a strong medication to help prevent future TIA/stroke. Your blood pressures were high likely from forgetting to take/misplacing your medications and this also may have contributed to some of your cognitive issues this week. You were given a prescription for outpatient Speech Therapy. Please call and schedule this appointment at your convenience. Total Time Total Time Spent Total Time Spent (In Minutes): 35 min Total Time Includes: Examination of the Patient, Discharge Planning, Medication Reconciliation and Communication With Other Providers (Neurology) Coding Level of Care Code 80118 INP/OBS DISCH >30 MIN Diagnoses Concussion S06.0XAA Brain TIA G45.9 HTN (hypertension) I10
[2024-10-20] MEDS: STROKE PATIENT DISCHARGE STA (10:22)
--- NOTE | 2024-10-23 10:58 | Pharmacy Report ---
Pharmacist Stroke Counseling - Date of Service October 23, 2024 - Scope: Pharmacy has been consulted to provide medication discharge counseling for this patient admitted with transient ischemic attack as per the Pharmacist Discharge Counseling for Stroke Patients Protocol. - Medications on Discharge: Home Medications Medication Instructions Recorded Confirmed eflornithine 13.9 % topical cream 1 applic topical BID PRN Skin 10/26/22 10/22/24 (Vaniqa) Irritation Cayenne Suppliment 1 dose PO DAILY 10/18/24 10/22/24 ashsilvinodha root extract 300 mg 300 mg PO DAILY 10/18/24 10/22/24 capsule calcium carbonate (Calcium 600) 600 mg PO DAILY 10/18/24 10/22/24 cholecalciferol (vitamin D3) 25 25 mcg PO DAILY 10/18/24 10/22/24 mcg (1,000 unit) capsule (Vitamin D3) cyanocobalamin (vitamin B-12) 1,000 mcg PO DAILY 10/18/24 10/22/24 1,000 mcg tablet (Vitamin B-12) diclofenac sodium 1 % topical gel 4 g topical QID PRN JOINT PAIN 10/18/24 10/22/24 (Voltaren Arthritis Pain) lorazepam 1 mg tablet 1 mg PO DIRECTED PRN anxiety 10/18/24 10/22/24 omega-3 fatty acids 1,000 mg 1,000 mg PO DAILY 10/18/24 10/22/24 capsule vitamin E 1 applic topical DAILY 10/18/24 10/22/24 New Rx's Medication Instructions Recorded folic acid 1 mg tablet 1 mg PO DAILY #90 tabs 07/18/23 acetaminophen 325 mg tablet 650 mg (2 x 325 mg) PO Q4H PRN 10/20/24 pain #30 tabs aspirin 81 mg tablet,delayed 81 mg PO DAILY #30 tabs 10/20/24 release atorvastatin 40 mg tablet 40 mg PO QAM #30 tabs 10/20/24 amlodipine 10 mg tablet 10 mg PO QPM #90 tabs 10/22/24 lisinopril 20 mg tablet 20 mg PO QPM #90 tabs 10/22/24 loperamide 2 mg capsule (Imodium 2 mg PO Q6H PRN loose stool #30 10/22/24 A-D) caps omeprazole 40 mg capsule,delayed 40 mg PO QPM #90 caps 04/28/25 release triamcinolone acetonide 0.025 % 1 applic topical BID PRN SKIN 10/22/24 topical ointment IRRITATIONS #80 grams - Action: The above medications, specifically ones for stroke treatment/prophylaxis, have been reviewed in detail with the patient and/or patient hvac sales representative(s) prior to discharge. This includes indication, common adverse reactions, drug interactions, and medication administration. Medication counseling has been employed using the teach-back method to ensure understanding. - Outcome: The patient and/or patient hvac sales representative(s) have demonstrated understanding of the medications. Thank you for allowing pharmacy to be involved in the care of this patient. Please call [phone] with any additional questions
== END 2024-10-20 10:56 | disposition home or self-care (01) | DRG 69 ==
LOC: ED 14:34 → SUATTDRO 17:26 → 2E 17:26